=== PATIENT | female | born 1975 | race American Indian/Alaskan Native ===

== ENCOUNTER 2020-12-14 15:54 | Emergency (ER) | payer MEDICAID ==
[2020-12-14] MEDS ORDERED: dexAMETHasone 20 MG/5 ML VIAL IV ONE (18:01)
[2020-12-14] MEDS ORDERED: KETOROLAC 30 MG/1 ML INJ IM ONE (18:01)
[2020-12-14] MEDS ORDERED: CYCLOBENZAPRINE 10 MG TAB PO ONE (18:01)
--- NOTE | 2020-12-14 18:01 | Emergency Department Report ---
ED Back Pain/Injury HPI - General Chief Complaint: Back Pain/Injury Stated Complaint: BACK/NECK/SHOULDER/PAIN Source: patient Limitations: No Limitations - History of Present Illness Initial Comments: 45-year-old -British female presents to the emergency room complaining of neck pain back pain. Patient states is been going on for about a week. Patient reports this started on the right side of her neck and has traveled onto the low down to her back as well as across her shoulders and radiates to her chest. Patient states that it feels like it is burning. Patient reports has been taken Tylenol 3, ibuprofen with not much relief. Patient denies any recent traumas. She states she has been doing Epson salt baths without much relief. Patient denies any past medical history currently takes no medications on a daily basis. Patient reports she does have a primary care provider at [facility] [address] but has not been able to make contact. Last menstrual period 12/07/20. MD Complaint: back pain Onset/Timin -: week(s) Similar Symptoms Previously: Yes Radiation: other (across her shoulders and radiates to her chest. ) Severity scale (0 -10): 10 Quality: sharp Consistency: constant Improves With: immobilization Worsens With: movement Associated Symptoms: shortness of breath (little). denies: numbness, incontinence, fever/chills, constipation, nausea/vomiting - Related Data Home Medications Medication Instructions Recorded Confirmed Last Taken diphenhydrAMINE [Benadryl] 50 mg PO Q6H PRN 05/07/14 05/07/14 05/07/14 03:00 Previous Rx's Medication Instructions Recorded Last Taken Type Ibuprofen [Motrin] 800 mg PO Q8H #30 tablet 05/07/14 Unknown Rx methylPREDNISolone [Medrol Dose 4 mg PO DAILY 6 Days tab 05/07/14 Unknown Rx Gerald] Acetaminophen/Codeine [Tylenol #3] 1 tab PO Q6H PRN #15 tab 09/09/15 Unknown Rx Ibuprofen [Motrin 600 MG tab] 600 mg PO Q8H PRN #30 tablet 09/09/15 Unknown Rx traMADoL [Ultram 50 MG tab] 50 mg PO Q6HR PRN #15 tablet 09/09/15 Unknown Rx Docusate Sodium [Colace] 100 mg PO BID #30 capsule 10/04/18 Unknown Rx Magnesium Citrate [Citrate of 300 ml PO PRN #1 bottle 10/04/18 Unknown Rx Magnesia] traMADoL [Ultram 50 MG tab] 50 mg PO Q6HR PRN #10 tablet 10/04/18 Unknown Rx Naproxen [Naprosyn TAB] 500 mg PO BID #20 tablet 12/14/20 Unknown Rx Prednisone [predniSONE 10 mg 10 mg PO .TAPER #1 tab.ds.pk 12/14/20 Unknown Rx (6-Day Pack, 21 Tabs)] Tizanidine HCl 2 mg PO Q8H PRN #30 tablet 12/14/20 Unknown Rx Allergies Allergy/AdvReac Type Severity Reaction Status Date / Time doxycycline Allergy Swelling Verified 05/07/14 15:58 ED Review of Systems ROS: Stated complaint: BACK/NECK/SHOULDER/PAIN Other details as noted in HPI Comment: All other systems reviewed and negative ED Past Medical Hx - Past Medical History Previous Medical History?: Yes Additional medical history: hemorroids - Surgical History Past Surgical History?: Yes Additional Surgical History: carpal tunnel surgery. urethral cyst removed. tubal ligation - Social History Smoking Status: Current Every Day Smoker Substance Use Type: None - Medications Home Medications: Home Medications Medication Instructions Recorded Confirmed Last Taken Type Ibuprofen [Motrin] 800 mg PO Q8H #30 tablet 05/07/14 Unknown Rx diphenhydrAMINE [Benadryl] 50 mg PO Q6H PRN 05/07/14 05/07/14 05/07/14 03:00 History methylPREDNISolone [Medrol Dose 4 mg PO DAILY 6 Days tab 05/07/14 Unknown Rx Gerald] Acetaminophen/Codeine [Tylenol #3] 1 tab PO Q6H PRN #15 tab 09/09/15 Unknown Rx Ibuprofen [Motrin 600 MG tab] 600 mg PO Q8H PRN #30 tablet 09/09/15 Unknown Rx traMADoL [Ultram 50 MG tab] 50 mg PO Q6HR PRN #15 tablet 09/09/15 Unknown Rx Docusate Sodium [Colace] 100 mg PO BID #30 capsule 10/04/18 Unknown Rx Magnesium Citrate [Citrate of 300 ml PO PRN #1 bottle 10/04/18 Unknown Rx Magnesia] traMADoL [Ultram 50 MG tab] 50 mg PO Q6HR PRN #10 tablet 10/04/18 Unknown Rx Naproxen [Naprosyn TAB] 500 mg PO BID #20 tablet 12/14/20 Unknown Rx Prednisone [predniSONE 10 mg 10 mg PO .TAPER #1 tab.ds.pk 12/14/20 Unknown Rx (6-Day Pack, 21 Tabs)] Tizanidine HCl 2 mg PO Q8H PRN #30 tablet 12/14/20 Unknown Rx ED Physical Exam - General Limitations: No Limitations General appearance: alert, in no apparent distress - Head Head exam: Present: atraumatic, normocephalic - Eye Eye exam: Present: normal appearance - ENT ENT exam: Present: mucous membranes moist - Neck Neck exam: Present: tenderness - Respiratory Respiratory exam: Present: normal lung sounds bilaterally, chest wall tenderness (left upper) - Cardiovascular Cardiovascular Exam: Present: regular rate, normal rhythm. Absent: systolic murmur, diastolic murmur, rubs, gallop - GI/Abdominal GI/Abdominal exam: Present: soft, normal bowel sounds - Extremities Exam Extremities exam: Present: full ROM, tenderness (Left shoulder) - Back Exam Back exam: Present: muscle spasm. Absent: vertebral tenderness - Neurological Exam Neurological exam: Present: alert, oriented X3 - Psychiatric Psychiatric exam: Present: normal affect, normal mood - Skin Skin exam: Present: warm, dry, intact, normal color. Absent: rash ED Course Vital Signs 12/14/20 16:47 Temperature 98.3 F Pulse Rate 71 Respiratory 20 Rate Blood Pressure 150/85 O2 Sat by Pulse 100 Oximetry ED Medical Decision Making - Medical Decision Making 45-year-old -British female presents to the emergency room complaining of neck pain back pain. Patient states is been going on for about a week. Patient reports this started on the right side of her neck and has traveled onto the low down to her back as well as across her shoulders and radiates to her chest. Patient states that it feels like it is burning. Patient reports has been taken Tylenol 3, ibuprofen with not much relief. Patient denies any recent traumas. She states she has been doing Epson salt baths without much relief. Patient denies any past medical history currently takes no medications on a daily basis. Patient reports she does have a primary care provider at [facility] but has not been able to make contact. Last menstrual period 12/07/20. Patient was given a Toradol injection of 30 mg dexamethasone 10 mg injection and cyclobenzaprine 10 mg p.o. Patient be discharged home on baclofen naproxen and prednisone taper. Patient instructed to follow-up with her primary care provider. Critical care attestation.: If time is entered above; I have spent that time in minutes in the direct care of this critically ill patient, excluding procedure time. ED Disposition Clinical Impression: Muscle spasm of back Low back strain Qualifiers: Encounter type: initial encounter Qualified Code(s): S39.012A - Strain of muscle, fascia and tendon of lower back, initial encounter Acute strain of neck muscle Qualifiers: Encounter type: initial encounter Qualified Code(s): S16.1XXA - Strain of muscle, fascia and tendon at neck level, initial encounter Disposition: TO HOME OR SELFCARE Is pt being admited?: No Does the pt Need Aspirin: No Condition: Stable Instructions: Muscle Cramps and Spasms, [id number] Additional Instructions: Please take medication as prescribed. Follow-up with your primary care provider. Of also listed a primary care provider for you in your discharge summary. Increase your water intake. Prescriptions: Naproxen [Naprosyn TAB] 500 mg PO BID #20 tablet Prednisone [predniSONE 10 mg (6-Day Pack, 21 Tabs)] 10 mg PO .TAPER #1 tab.ds.pk Tizanidine HCl 2 mg PO Q8H PRN #30 tablet PRN Reason: Muscle Spasm Referrals: JOVANNY BONILLA MD [Staff Physician] - 3-5 Days
[2020-12-14 19:59] VITALS: BP 118/76
== END 2020-12-14 19:59 | disposition home or self-care (01) ==
LOC: ED 15:54
DX: S39.012A Strain of muscle, fascia and tendon of lower back, initial encounter (principal); S16.1XXA Strain of muscle, fascia and tendon at neck level, initial encounter; M62.830 Muscle spasm of back; F17.200 Nicotine dependence, unspecified, uncomplicated; Z98.890 Other specified postprocedural states; Z79.1 Long term (current) use of non-steroidal anti-inflammatories (NSAID); Z79.899 Other long term (current) drug therapy; Z88.8 Allergy status to other drugs, medicaments and biological substances; X58.XXXA Exposure to other specified factors, initial encounter; Y93.89 Activity, other specified; Y92.89 Other specified places as the place of occurrence of the external cause; Y99.8 Other external cause status
CPT/HCPCS: 82962; 96372; 96374; 99283; J1100; J1885